=== PATIENT | female | born 1960 | race Caucasian/White ===

== ENCOUNTER 2016-12-02 09:37 | Outpatient (CLI) | payer BC, OTHER ==
--- NOTE | 2016-12-14 10:51 | MMO ---
BILATERAL SCREENING MAMMOGRAMS: DATE: 12/02/16 Reference made to 09/12/15 and 08/28/15. This patient's mammogram was interpreted with the assistance of computer-aided detection. FINDINGS: Indwelling implants are present, which limits sensitivity and could obscure underlying pathology. Th ere is heterogeneously dense breast parenchyma. No new dominant mass, suspicious clustering of micro calcification, or architectural distortion. There is benign-appearing punctate calcification bilater ally. IMPRESSION: BIRADS 2: Benign Finding(s) Annual screening mammography is recommended. POS: [facility]
== END 2016-12-02 09:38 | disposition home or self-care (01) ==
LOC: SCSMAMMO 09:37
PROVIDERS: ATTEND Obstetrics & Gynecology
DX: Z12.31 Encounter for screening mammogram for malignant neoplasm of breast (principal)
CPT/HCPCS: 77067; G0202